=== PATIENT | male | born 1955 | race Caucasian/White ===

== ENCOUNTER 2017-02-23 13:30 | Inpatient (IN) | payer OTHER ==
[~2017-02-23] VITALS: Ht 188 cm; Wt 145.6 kg
[~2017-02-23 13:30] MED LIST: ACCUPRIL40 MG PO; AMLODIPINE BESYL5 MG PO; ASCORBIC ACID500 M3 PO; Ascorbic Acid,Ester- PO; Augmentin PO; B-121000 MC2 PO; CALCITRIOL0.25 MCG PO; CALCIUM + VITA1 EACH PO; CALCIUM ACETAT667 MG PO; CALTRATE 6001 TABLE1 PO; CARVEDILOL25 MG PO; CENTRUM SILVER1 EAC3 PO; COMBIGAN O20 DROP/5 BOTH EYES; COREG12.5 M1 PO; COREG25 M1 PO; CRESTOR10 MG PO; Combigan Ophth Soln BOTH EYES; Coreg PO; DAILY VALUE1 EACH PO; DYNAPEN500 MG PO; ERGOCALCIF50000 UNIT PO; FUROSEMIDE40 MG PO; Flaxseed Oil PO; GLUCOPHAGE500 MG PO; HYDROCHLOROTHIA25 MG PO; Hydrodiuril,Oretic,E PO; ISOPTO HOMATROPI5 ML BOTH EYES; K-Dur PO; KLOR-CON 88 MEQ PO; LASIX40 MG PO; LATISSE3 ML TP; LEVAQUIN500 MG PO; LEVEMIR FL100 UNIT/1 SC; LEVEMIR FL100 UNITS/ SC; LEVEMIR100 UNIT/1 SQ; LEVEMIR100 UNIT/2 SC; LIPITOR20 MG PO; LOTEMAX5 ML RIGHT EYE; LUMIGAN 0.50 DROP/2. BOTH EYES; LUMIGAN 0.50 DROP/22 BOTH EYES; Lasix PO; Lipitor PO; Lumigan 0.03% Ophth BOTH EYES; METFORMIN HCL1000 M1 PO; METRONIDAZOLE250 MG PO; MICRO-K8 ME2 PO; NEPHRO-VITE,1 TABLET PO; NORVASC5 M1 PO; NORVASC5 MG PO; NOVOLOG (UNITS1 UNIT SC; NOVOLOG MI100 UNIT/4 SC; NOVOLOG PE100 UNITS/ SC; NOVOLOG PE100 UNITS/ SQ; Norvasc PO; OCUVITE TABLET1 EACH PO; OXYCODONE-APAP1 EAC4 PO; Omega III EPA + DHA PO; PERCOCET 5/31 TABLET PO; POTASSIUM CHLOR8 ME3 PO; QUINAPRIL HCL40 MG PO; Questran PO; RESTASIS 01 DROP/0.4 BOTH EYES; ROCALTROL0.25 MCG PO; ROPINIROLE HCL0.5 MG PO; Rocaltrol PO; SIMVASTATIN40 MG PO; THERA TEARS NU1 EACH PO; TRUSOPT 2%200 DROP/1 BOTH EYES; TRUSOPT5 ML BOTH EYES; TUMS500 MG PO; Theragran PO; Trusopt 2% Ophth Sol BOTH EYES; VIT D2 PO; VITAMIN B12 100MCG PO; VITAMIN D1000 INTUN PO; VITAMIN D250000 UNIT PO; VITAMIN D31000 UNIT PO; Vicodin,Lortab 5/500 PO; Vicodin,Norco 5/325 PO; Xalatan 0.005% Ophth BOTH EYES; ZITHROMAX250 MG PO; Zocor PO; celeBREX PO
[2017-02-23 14:43] LABS: EOSINOPHIL (%) 0.9 % (0-5); EOSINOPHIL COUNT 0.1 K/uL (0-0.3); HEMATOCRIT 38.5 % (38.0-50.0); IMMATURE GRANULOCYTE (%) 0.3 % (0.0-0.7); INSTRUMENT ABS NEUTROPHIL CT 7.6 K/uL; LYMPHOCYTE COUNT 0.8 K/uL (1.0-2.8); MCH 28.9 PG (29.0-34.0); MCHC 31.9 G/DL (30.0-36.0); MCV 90.4 FL (86-99); MEAN PLAT.VOLUME 11.5 uM^3 (9.0-12.4); MONOCYTE (%) 11.6 % (3-12); MONOCYTE COUNT 1.1 K/uL (0-0.8); NEUTROPHIL (%) 78.8 % (45-76); NEUTROPHIL COUNT 7.6 K/uL (1.8-6.4); PLATELET COUNT 202 K/uL (156-360); RBC DIS.WIDTH-CV 14.8 % (11.8-14.6); RBC DIS.WIDTH-SD 48.3 % (39-53); RED BLOOD COUNT 4.26 M/uL (4.00-5.50); WHITE BLOOD COUNT 9.6 K/uL (4.1-10.2)
[2017-02-23 14:51] LABS: CHLORIDE 87 mEq/L (99-109); POTASSIUM 3.5 mEq/L (3.7-5.4); SODIUM 131 mEq/L (136-147)
[2017-02-23 14:53] LABS: GLUCOSE 179 mg/dL (70-99)
[2017-02-23 14:54] LABS: ANION GAP 16 MEQ/L (2-14)
[2017-02-23 14:57] LABS: GFR ESTIMATE (CALCULATED) 12 mL/min/
[2017-02-23 14:58] LABS: UREA NITROGEN (BUN) 17 mg/dL (9-23)
[2017-02-23] MEDS ORDERED: BENTYL20 MG PO (16:37)
[2017-02-23] MEDS ORDERED: CALTRATE PLUS1 EACH PO (16:37)
[2017-02-23] MEDS ORDERED: NEURONTIN300 MG PO (16:38)
[2017-02-23] MEDS ORDERED: THERA TEARS NU1 EACH PO (16:43)
[2017-02-23] MEDS ORDERED: NOVOLOG PE100 UNITS/ SC (16:44)
[2017-02-23 20:25] VITALS: BP 145/80
[2017-02-23 21:51] LABS: POINT-OF-CARE METER ID UU13113807
[2017-02-23 23:15] VITALS: BP 138/92
[2017-02-24 00:54] LABS: POINT-OF-CARE METER ID UU13113807; POINT-OF-CARE USER ID STWHLR41
[2017-02-24 04:10] VITALS: BP 160/74
[2017-02-24 07:40] LABS: METH RESISTANT S AUREUS PCR NEGATIVE (NEGATIVE)
[2017-02-24 07:42] VITALS: BP 155/75
[2017-02-24 07:46] LABS: PROBE CHECK PASS; SPECIMEN PROCESSING CONTROL PASS
[2017-02-24 08:29] LABS: POINT-OF-CARE METER ID UU13113807
[2017-02-24 09:37] LABS: EOSINOPHIL COUNT 0.2 K/uL (0-0.3); HEMATOCRIT 35.4 % (38.0-50.0); IMMATURE GRANULOCYTE (%) 0.3 % (0.0-0.7); LYMPHOCYTE COUNT 1.2 K/uL (1.0-2.8); MCHC 31.9 G/DL (30.0-36.0); MEAN PLAT.VOLUME 11.5 uM^3 (9.0-12.4); MONOCYTE (%) 17.9 % (3-12); MONOCYTE COUNT 1.2 K/uL (0-0.8); PLATELET COUNT 171 K/uL (156-360); RBC DIS.WIDTH-CV 14.8 % (11.8-14.6); RBC DIS.WIDTH-SD 49.5 % (39-53); RED BLOOD COUNT 3.89 M/uL (4.00-5.50)
[2017-02-24 09:39] LABS: WHITE BLOOD COUNT 6.7 K/uL (4.1-10.2)
[2017-02-24 10:01] LABS: ANION GAP 12 MEQ/L (2-14); CHLORIDE 87 MEQ/L (99-109); GFR ESTIMATE (CALCULATED) 9 mL/min/; POTASSIUM 3.6 MEQ/L (3.7-5.4); SAMPLE HEMOLYSIS CHECK 0; SAMPLE ICTERIC CHECK 0; SAMPLE LIPEMIA CHECK 0; SODIUM 131 MEQ/L (136-147); UREA NITROGEN (BUN) 25 mg/dL (9-23)
[2017-02-24 10:02] LABS: GLUCOSE 82 mg/dL (70-99)
[2017-02-24 12:19] LABS: POINT-OF-CARE METER ID UU13113807
[2017-02-24 15:46] VITALS: BP 148/79
[2017-02-24 17:37] LABS: POINT-OF-CARE METER ID UU13113807
[2017-02-24 21:35] VITALS: BP 140/80
[2017-02-24 21:46] LABS: POINT-OF-CARE METER ID UU13113807
[2017-02-25 00:16] VITALS: BP 150/65
[2017-02-25 08:00] VITALS: BP 173/82
[2017-02-25 10:15] LABS: EOSINOPHIL (%) 2.7 % (0-5); EOSINOPHIL COUNT 0.2 K/uL (0-0.3); HEMATOCRIT 37.3 % (38.0-50.0); IMMATURE GRANULOCYTE (%) 0.5 % (0.0-0.7); INSTRUMENT ABS NEUTROPHIL CT 6.1 K/uL; LYMPHOCYTE COUNT 1.4 K/uL (1.0-2.8); MCH 28.7 PG (29.0-34.0); MCHC 31.9 G/DL (30.0-36.0); MCV 90.1 FL (86-99); MEAN PLAT.VOLUME 11.7 uM^3 (9.0-12.4); MONOCYTE (%) 8.4 % (3-12); MONOCYTE COUNT 0.7 K/uL (0-0.8); NEUTROPHIL (%) 71.6 % (45-76); NEUTROPHIL COUNT 6.1 K/uL (1.8-6.4); PLATELET COUNT 181 K/uL (156-360); RBC DIS.WIDTH-CV 14.6 % (11.8-14.6); RBC DIS.WIDTH-SD 48.3 % (39-53); RED BLOOD COUNT 4.14 M/uL (4.00-5.50); WHITE BLOOD COUNT 8.5 K/uL (4.1-10.2)
[2017-02-25 10:19] LABS: POINT-OF-CARE METER ID UU14149398
[2017-02-25 10:46] LABS: ANION GAP 14 MEQ/L (2-14); CHLORIDE 86 MEQ/L (99-109); GLUCOSE 80 mg/dL (70-99); POTASSIUM 3.8 MEQ/L (3.7-5.4); SAMPLE HEMOLYSIS CHECK 0; SAMPLE ICTERIC CHECK 0; SAMPLE LIPEMIA CHECK 0; SODIUM 130 MEQ/L (136-147); UREA NITROGEN (BUN) 33 mg/dL (9-23)
[2017-02-25 10:57] LABS: GFR ESTIMATE (CALCULATED) 7 mL/min/
[2017-02-25 10:58] LABS: VANCOMYCIN, TROUGH 9.1 MCG/ML (10-20)
[2017-02-25 11:30] LABS: POINT-OF-CARE METER ID UU14149398
[2017-02-25 12:00] VITALS: BP 188/93
[2017-02-25 18:18] LABS: POINT-OF-CARE METER ID UU14149398
[2017-02-25 18:21] VITALS: BP 176/81
[2017-02-25 21:27] LABS: POINT-OF-CARE METER ID UU13113807
[2017-02-26 00:16] VITALS: BP 161/77
[2017-02-26 08:44] VITALS: BP 158/79
[2017-02-26 08:51] LABS: POINT-OF-CARE METER ID UU13113807
[2017-02-26 12:29] LABS: POINT-OF-CARE METER ID UU13113807
[2017-02-26] MEDS ORDERED: AUGMENTIN875 MG PO (15:03)
[2017-02-26 15:42] VITALS: BP 154/87
== END 2017-02-26 16:10 | disposition home or self-care (01) | DRG 193 ==
LOC: EME 13:30 → EDOF 17:02 → 4SOUTH 17:02
PROVIDERS: Hospitalist; Student in an Organized Health Care Education/Training Program
PROC: 5A1D00Z (ICD-10-PCS; principal; 2017-02-25)
DX: J18.9 Pneumonia, unspecified organism (principal); I12.0 Hypertensive chronic kidney disease with stage 5 chronic kidney disease or end stage renal disease; E11.22 Type 2 diabetes mellitus with diabetic chronic kidney disease; N18.6 End stage renal disease; E87.6 Hypokalemia; E66.01 Morbid (severe) obesity due to excess calories; E78.5 Hyperlipidemia, unspecified; D64.9 Anemia, unspecified; E11.40 Type 2 diabetes mellitus with diabetic neuropathy, unspecified; E11.319 Type 2 diabetes mellitus with unspecified diabetic retinopathy without macular edema; Z98.84 Bariatric surgery status; Z68.41 Body mass index [BMI] 40.0-44.9, adult; Z79.4 Long term (current) use of insulin; Z99.2 Dependence on renal dialysis
CPT/HCPCS: 71010; 80048; 80202; 81003; 82948; 83605; 85025; 87040; 87070; 87205; 87449; 87641; 94799; 99281; 99285; J0456; J1644; J2543; J3370; J7050

== ENCOUNTER 2017-03-10 02:11 | Emergency (ER) | payer OTHER ==
[~2017-03-10] VITALS: Ht 188 cm; Wt 141.6 kg
[~2017-03-10 02:11] MED LIST changes: +AUGMENTIN875 MG PO; +BENTYL20 MG PO; +CALTRATE PLUS1 EACH PO; +NEURONTIN300 MG PO
[2017-03-10 02:28] LABS: BASOPHIL COUNT 0.1 K/uL (0-0.1); EOSINOPHIL COUNT 0.2 K/uL (0-0.3); HEMATOCRIT 37.3 % (38.0-50.0); IMMATURE GRANULOCYTE (%) 0.3 % (0.0-0.7); INSTRUMENT ABS NEUTROPHIL CT 8.6 K/uL; LYMPHOCYTE COUNT 0.9 K/uL (1.0-2.8); MCHC 31.9 G/DL (30.0-36.0); MEAN PLAT.VOLUME 11.4 uM^3 (9.0-12.4); MONOCYTE (%) 8.3 % (3-12); MONOCYTE COUNT 0.9 K/uL (0-0.8); NEUTROPHIL (%) 80.5 % (45-76); NEUTROPHIL COUNT 8.6 K/uL (1.8-6.4); PLATELET COUNT 214 K/uL (156-360); RBC DIS.WIDTH-CV 14.7 % (11.8-14.6); RBC DIS.WIDTH-SD 48.6 % (39-53); WHITE BLOOD COUNT 10.7 K/uL (4.1-10.2)
[2017-03-10 02:41] LABS: CHLORIDE 92 mEq/L (99-109); POTASSIUM 3.6 mEq/L (3.7-5.4); SODIUM 134 mEq/L (136-147)
[2017-03-10 02:43] LABS: GLUCOSE 331 mg/dL (70-99)
[2017-03-10 02:44] LABS: ANION GAP 10 MEQ/L (2-14)
[2017-03-10 02:46] LABS: SERUM ETHYL ALCOHOL < 10 mg/dL
[2017-03-10 02:47] LABS: GFR ESTIMATE (CALCULATED) 9 mL/min/
[2017-03-10 02:48] LABS: UREA NITROGEN (BUN) 22 mg/dL (9-23)
[2017-03-10 06:45] VITALS: BP 191/101
[2017-03-11] MEDS ORDERED: CALTRATE GUMMY1 EACH PO (18:21)
[2017-03-11] MEDS ORDERED: CALCIUM ACETAT667 MG PO (18:22)
[2017-03-11] MEDS ORDERED: SYSTANE 0.3-0.1 EACH BOTH EYES (18:24)
[2017-03-11] MEDS ORDERED: TRUSOPT5 ML RIGHT EYE (18:24)
[2017-03-11] MEDS ORDERED: NEPHRO-VITE RX1 EACH PO (18:25)
== END 2017-03-10 06:46 | disposition home or self-care (01) ==
LOC: EME 02:11
PROVIDERS: Personal Emergency Response Attendant
DX: Z04.3 Encounter for examination and observation following other accident (principal); E11.65 Type 2 diabetes mellitus with hyperglycemia; I12.0 Hypertensive chronic kidney disease with stage 5 chronic kidney disease or end stage renal disease; N18.6 End stage renal disease; E11.22 Type 2 diabetes mellitus with diabetic chronic kidney disease; Z99.2 Dependence on renal dialysis; Z79.4 Long term (current) use of insulin; I44.0 Atrioventricular block, first degree; E78.5 Hyperlipidemia, unspecified; E66.9 Obesity, unspecified; Z68.41 Body mass index [BMI] 40.0-44.9, adult; Z98.84 Bariatric surgery status
CPT/HCPCS: 70450; 71020; 80048; 81003; 85025; 93005; 99281; 99285; G0480

== ENCOUNTER 2017-03-11 07:46 | Observation (INO) | payer OTHER ==
[~2017-03-11] VITALS: Ht 188 cm; Wt 134.9 kg
[2017-03-11 08:27] LABS: BASOPHIL COUNT 0.1 K/uL (0-0.1); EOSINOPHIL (%) 3.2 % (0-5); EOSINOPHIL COUNT 0.3 K/uL (0-0.3); HEMATOCRIT 38.7 % (38.0-50.0); IMMATURE GRANULOCYTE (%) 0.4 % (0.0-0.7); INSTRUMENT ABS NEUTROPHIL CT 7.5 K/uL; LYMPHOCYTE COUNT 1.6 K/uL (1.0-2.8); MCHC 31.5 G/DL (30.0-36.0); MCV 91.9 FL (86-99); MEAN PLAT.VOLUME 11.7 uM^3 (9.0-12.4); MONOCYTE (%) 10.4 % (3-12); MONOCYTE COUNT 1.1 K/uL (0-0.8); NEUTROPHIL (%) 70.6 % (45-76); NEUTROPHIL COUNT 7.5 K/uL (1.8-6.4); PLATELET COUNT 223 K/uL (156-360); RBC DIS.WIDTH-CV 15.1 % (11.8-14.6); RBC DIS.WIDTH-SD 51.2 % (39-53); RED BLOOD COUNT 4.21 M/uL (4.00-5.50); WHITE BLOOD COUNT 10.6 K/uL (4.1-10.2)
[2017-03-11 08:36] LABS: CHLORIDE 93 mEq/L (99-109); POTASSIUM 3.7 mEq/L (3.7-5.4); SODIUM 136 mEq/L (136-147)
[2017-03-11 08:38] LABS: GLUCOSE 254 mg/dL (70-99)
[2017-03-11 08:39] LABS: ANION GAP 13 MEQ/L (2-14)
[2017-03-11 08:40] LABS: TOTAL BILIRUBIN 0.4 mg/dL (0.0-1.0)
[2017-03-11 08:41] LABS: ALKALINE PHOSPHATASE 80 IU/L (3-129)
[2017-03-11 08:44] LABS: CREATINE KINASE 741 IU/L (1-294); TOTAL CK 741 IU/L (1-294)
[2017-03-11 08:48] LABS: UREA NITROGEN (BUN) 35 mg/dL (9-23)
[2017-03-11 08:50] LABS: CK-MB 2.1 ng/mL (0.0-4.9)
[2017-03-11 09:10] LABS: GFR ESTIMATE (CALCULATED) 6 mL/min/
[2017-03-11 09:35] LABS: ADD MIUA? YES; BILIRUBIN NEGATIVE; BLOOD SMALL; COLOR YELLOW ((YELLOW)); GLUCOSE (STRIP) >=500; KETONES NEGATIVE; LEUKOCYTES NEGATIVE; NITRITE NEGATIVE; PROTEIN (STRIP) >=500; SPECIFIC GRAVITY 1.014 (1.000-1.030); UROBILINOGEN 0.2 MG/DL (0.2-1.0)
[2017-03-11 09:59] LABS: BACTERIA 1+ /HPF; EPITHELIAL CELLS 1+ /HPF; MUCUS NONE SEEN /LPF; RED BLOOD CELLS 0-5 /HPF (0-5); UCUL ADDED? NO
[2017-03-11 10:00] LABS: AMORPHOUS URATES CRYSTALS 2+; CRYSTALS PRESENT
[2017-03-11] MEDS ORDERED: CALTRATE GUMMY1 EACH PO (18:21)
[2017-03-11] MEDS ORDERED: CALCIUM ACETAT667 MG PO (18:22)
[2017-03-11] MEDS ORDERED: SYSTANE 0.3-0.1 EACH BOTH EYES (18:24)
[2017-03-11] MEDS ORDERED: TRUSOPT5 ML RIGHT EYE (18:24)
[2017-03-11] MEDS ORDERED: NEPHRO-VITE RX1 EACH PO (18:25)
[2017-03-11 20:42] VITALS: BP 146/77
[2017-03-12 01:09] VITALS: BP 146/65
[2017-03-12 04:03] VITALS: BP 143/70
[2017-03-12 05:22] LABS: HEMATOCRIT 36.6 % (38.0-50.0); MCH 29.1 PG (29.0-34.0); MCHC 31.4 G/DL (30.0-36.0); MCV 92.7 FL (86-99); MEAN PLAT.VOLUME 11.9 uM^3 (9.0-12.4); PLATELET COUNT 198 K/uL (156-360); RBC DIS.WIDTH-CV 15.1 % (11.8-14.6); RBC DIS.WIDTH-SD 51.8 % (39-53); RED BLOOD COUNT 3.95 M/uL (4.00-5.50); WHITE BLOOD COUNT 10.7 K/uL (4.1-10.2)
[2017-03-12 05:36] LABS: ANION GAP 13 MEQ/L (2-14); CHLORIDE 92 MEQ/L (99-109); GFR ESTIMATE (CALCULATED) 9 mL/min/; GLUCOSE 274 mg/dL (70-99); POTASSIUM 3.7 MEQ/L (3.7-5.4); SAMPLE HEMOLYSIS CHECK 0; SAMPLE ICTERIC CHECK 0; SAMPLE LIPEMIA CHECK 0; SODIUM 137 MEQ/L (136-147); UREA NITROGEN (BUN) 23 mg/dL (9-23)
[2017-03-12 07:44] VITALS: BP 133/63
[2017-03-12 15:24] VITALS: BP 126/62
[2017-03-12 17:06] LABS: POINT-OF-CARE METER ID UU14188577
[2017-03-12 20:04] VITALS: BP 165/77
[2017-03-12 23:07] VITALS: BP 163/74
[2017-03-13 04:20] VITALS: BP 108/59
[2017-03-13 08:11] VITALS: BP 106/58
[2017-03-13 09:28] LABS: HEMATOCRIT 40.5 % (38.0-50.0); MCH 28.9 PG (29.0-34.0); MCHC 30.9 G/DL (30.0-36.0); MCV 93.8 FL (86-99); MEAN PLAT.VOLUME 12.1 uM^3 (9.0-12.4); PLATELET COUNT 238 K/uL (156-360); RBC DIS.WIDTH-CV 15.2 % (11.8-14.6); RED BLOOD COUNT 4.32 M/uL (4.00-5.50)
[2017-03-13 09:49] LABS: ANION GAP 14 MEQ/L (2-14); CHLORIDE 93 MEQ/L (99-109); GFR ESTIMATE (CALCULATED) 10 mL/min/; GLUCOSE 159 mg/dL (70-99); POTASSIUM 3.9 MEQ/L (3.7-5.4); SAMPLE HEMOLYSIS CHECK 0; SAMPLE ICTERIC CHECK 0; SAMPLE LIPEMIA CHECK 0; SODIUM 135 MEQ/L (136-147); UREA NITROGEN (BUN) 20 mg/dL (9-23)
[2017-03-13 12:27] VITALS: BP 153/85
[2017-03-13 16:16] VITALS: BP 115/70
[2017-03-13 20:20] VITALS: BP 129/64
[2017-03-13 21:40] LABS: POINT-OF-CARE METER ID UU14149397
[2017-03-13 23:47] VITALS: BP 152/67
[2017-03-14 03:40] VITALS: BP 129/68
[2017-03-14 07:37] VITALS: BP 131/70
[2017-03-14 10:00] LABS: ANION GAP 10 MEQ/L (2-14); CHLORIDE 93 MEQ/L (99-109); SAMPLE HEMOLYSIS CHECK 0; SAMPLE ICTERIC CHECK 0; SAMPLE LIPEMIA CHECK 0; SODIUM 133 MEQ/L (136-147)
[2017-03-14 10:06] LABS: GFR ESTIMATE (CALCULATED) 10 mL/min/; UREA NITROGEN (BUN) 24 mg/dL (9-23)
[2017-03-14 10:07] LABS: GLUCOSE 289 mg/dL (70-99)
[2017-03-14 11:37] VITALS: BP 118/59
[2017-03-14] MEDS ORDERED: ULTRA-LIGHT RO1 EACH MC (12:13)
== END 2017-03-14 13:01 | disposition home health service (06) ==
LOC: EME 07:46 → EDOF 13:40 → 3EAST 13:40
PROVIDERS: Emergency Medicine; Hospitalist; Physician Assistant
DX: R26.2 Difficulty in walking, not elsewhere classified (principal); R41.82 Altered mental status, unspecified; S82.831A Other fracture of upper and lower end of right fibula, initial encounter for closed fracture; W19.XXXA Unspecified fall, initial encounter; E11.40 Type 2 diabetes mellitus with diabetic neuropathy, unspecified; I12.0 Hypertensive chronic kidney disease with stage 5 chronic kidney disease or end stage renal disease; N18.6 End stage renal disease; E66.01 Morbid (severe) obesity due to excess calories; Z68.38 Body mass index [BMI] 38.0-38.9, adult; Z99.2 Dependence on renal dialysis; E13.319 Other specified diabetes mellitus with unspecified diabetic retinopathy without macular edema; D64.9 Anemia, unspecified; E78.5 Hyperlipidemia, unspecified; Z98.84 Bariatric surgery status
CPT/HCPCS: 70450; 71010; 73564; 73610; 73721; 80048; 80053; 81003; 82550; 82553; 82948; 83605; 85025; 85027; 93005; G0378; G8978 CL; G8979 CJ; G8987 GO CN; G8988 CI; J1644; J2270